=== PATIENT | male | born 1965 | race Caucasian/White ===

== ENCOUNTER 2024-01-16 20:36 | Emergency (ER) | payer OTHER, SELFPAY ==
[2024-01-16 21:41] LABS: INR-International Normal Ratio 1.1; Prothrombin Time 11.8 sec (9.5-12.1)
[2024-01-16 21:42] LABS: #Basophils 0.07 10x3/uL (0.0-0.2); #Eosinphils 0.17 10x3/uL (0.0-0.5); #Monocytes 0.57 10x3/uL (0.0-1.1); #Neutrophils 3.94 10x3/uL (1.5-8.4); %Eosinophils 2.5 % (0.0-6.0); %Lymphocytes 29.2 % (18.0-47.0); %Monocytes 8.4 % (0.0-10.0); %Neutrophils 58.5 % (40.0-75.0); Hematocrit 32.3 % (38.8-50.0); Hemoglobin 10.8 g/dL (13.5-17.5); Mean Corpuscular HGB CONC 33.4 g/dL (32.0-36.0); Mean Corpuscular Hemoglobin 29.8 pg (27.0-33.0); Mean Corpuscular Volume 89.2 fL (81.2-95.1); Mean Platelet Volume 9.9 fL (7.4-10.4); Platelet Count 200 10x3/uL (150-450); RBC Distribution Width 12.9 % (11.5-14.5); Red Blood Cell (RBC) Count 3.62 10x6/uL (4.32-5.72); White Blood Cell (WBC) Count 6.8 10x3/uL (3.5-10.5)
[2024-01-16 21:48] LABS: ALT (SGPT) 13 U/L (8-55); AST (SGOT) 15 U/L (5-34); Albumin 3.8 g/dL (3.5-5.0); Alkaline Phosphatase 38 U/L (40-110); Anion Gap 13 mmol/L (10-20); BUN (Urea Nitrogen) 15 mg/dL (8.4-25.7); Bilirubin, Total 0.2 mg/dL (0.2-1.2); Calc. Creatinine Clearance 0 mL/min (70-130); Carbon Dioxide 24 mmol/L (22-29); Chloride 109 mmol/L (98-107); Estimated GFR 101; Globulin 2.4 g/dL (2.4-3.5); Glucose 127 mg/dL (70-105); Potassium 3.5 mmol/L (3.5-5.1); Protein, Total 6.2 g/dL (6.0-8.3); Sodium 142 mmol/L (136-145)
[2024-01-16 23:01] LABS: PTT 20.8 sec (22.0-33.0)
== END 2024-01-17 00:42 | disposition short-term general hospital (02) ==
LOC: CSHERS 20:36
DX: K92.2 Gastrointestinal hemorrhage, unspecified (principal); D64.9 Anemia, unspecified; I10 Essential (primary) hypertension; F17.210 Nicotine dependence, cigarettes, uncomplicated; Z79.82 Long term (current) use of aspirin; Z79.899 Other long term (current) drug therapy
CPT/HCPCS: 36415; 80053; 85025; 85610; 85730; 86850; 86900; 86901; 99284